=== PATIENT | female | born 1970 | race Caucasian/White ===

== ENCOUNTER 2019-07-25 06:04 | Inpatient (IN) | payer BC ==
[~2019-07-25 06:04] MED LIST: Acetaminophen 325 MG Tab PO SCH; Bisacodyl 5 MG Tab PO PRN; Lactated Ringers 1,000 ML IV SCH; Lidocaine 1%/Sod Bicarbonate in NS 8.4% 1 ML Syringe IDERM PRN; Magnesium Hydroxide 400 MG/5 ML Susp 30 ML Cup PO PRN; Morphine 2 MG/ML Syringe IVPUSH PRN; Naloxone 0.4 MG/ML SDV IVPUSH PRN; Ondansetron 4 MG/2 ML SDV IVPUSH PRN; Pregabalin 25 MG Cap PO SCH; Scopolamine 1.5 MG Transdermal Patch TRDERM SCH; Sennosides 8.6 MG Tab PO PRN; Sodium Chloride 0.9% 10 ML Syringe FLUSH PRN; oxyCODONE ER 10 MG TAB.ER PO SCH
[2019-07-25] MEDS ORDERED: fentaNYL 100 MCG/2 ML SDV ONE (06:22)
[2019-07-25] MEDS ORDERED: Midazolam 1 MG/ML 2 ML SDV ONE ×2 (06:22→07:55)
[2019-07-25] MEDS ORDERED: Propofol 200 MG/20 ML SDV ONE ×2 (06:22→07:58)
[2019-07-25] MEDS ORDERED: ceFAZolin 1 GM Vial ONE (06:25)
--- NOTE | 2019-07-25 06:38 | PCM.PREANE ---
Preanesthetic Assessment - Procedure Proposed Procedure: left total knee arthroplasty - Anesthesia/Transfusion/Family Hx Anesthesia History: Prior Anesthesia Reaction Type of Anesthesia Reaction: Excessive Nausea/Vomiting Family History of Anesthesia Reaction: No Transfusion History: No Prior Transfusion(s) - Review of Systems General: No Symptoms Pulmonary: No Symptoms Cardiovascular: No Symptoms Gastrointestinal: No Symptoms Neurological: No Symptoms Other: Reports: Depression, Anxiety - Physical Assessment NPO Status Date: 07/24/19 NPO Status Time: 22:00 Vital Signs: Last Vital Signs Temp 97.8 F 07/25/19 06:10 Pulse 70 07/25/19 06:10 Resp 16 07/25/19 06:10 BP 124/86 07/25/19 06:10 Pulse Ox 97 07/25/19 06:10 Height: 5 ft 4 in Weight: 91.172 kg ASA Class: 2 Mental Status: Alert & Oriented x3 Airway Class: Mallampati = 1 Dentition: Reports: Normal Dentition Thyro-Mental Finger Breadths: 3 Mouth Opening Finger Breadths: 3 ROM/Head Extension: Full Lungs: Clear to Auscultation, Normal Respiratory Effort Cardiovascular: Regular Rate, Regular Rhythm - Allergies Allergies/Adverse Reactions: Allergies Allergy/AdvReac Type Severity Reaction Status Date / Time amoxicillin Allergy Rash Verified 07/22/19 11:12 bee venom protein (honey bee) Allergy throat Verified 07/22/19 11:12 swelling ciprofloxacin Allergy Rash Verified 07/22/19 11:12 hydrochlorothiazide Allergy Rash Verified 07/22/19 11:12 Penicillins Allergy Rash Verified 07/22/19 11:12 - Blood Blood Available: No - Acknowledgements Anesthesia Type Planned: Spinal Pt an Appropriate Candidate for the Planned Anesthesia: Yes Alternatives and Risks of Anesthesia Discussed w Pt/Guardian: Yes Pt/Guardian Understands and Agrees with Anesthesia Plan: Yes PreAnesthesia Questionnaire HEENT History: Reports: Allergic Rhinitis, Impaired Vision Cardiovascular History: Reports: Hypertension Respiratory History: Reports: Sleep Apnea (cpap) Gastrointestinal History: Reports: None Genitourinary History: Reports: None 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 Musculoskeletal History: Reports: Osteoarthritis Other Musculoskeletal History: KNEE PAIN Neurological History: Reports: Migraines Psychiatric History: Reports: Anxiety, Depression Endocrine/Metabolic History: Reports: None Hematologic History: Reports: None Immunologic History: Reports: None Oncologic (Cancer) History: Reports: None Dermatologic History: Reports: None - Past Surgical History Head Surgeries/Procedures: Reports: None HEENT Surgical History: Reports: Tonsillectomy Cardiovascular Surgical History: Reports: None Respiratory Surgical History: Reports: None GI Surgical History: Reports: None Female Surgical History: Reports: Tubal Ligation Male Surgical History: Reports: None Endocrine Surgical History: Reports: None Neurological Surgical History: Reports: None Musculoskeletal Surgical History: Reports: Carpal Tunnel Oncologic Surgical History: Reports: None Dermatological Surgical History: Reports: None - SUBSTANCE USE Smoking Status *Q: Never Smoker Tobacco Use Within Last Twelve Months: No Second Hand Smoke Exposure: No Days Per Week of Alcohol Use: 3 Number of Drinks Per Day: 5 Total Drinks Per Week: 15 Recreational Drug Use History: No - HOME MEDS Home Medications: Home Meds Cholecalciferol (Vitamin D3) [Vitamin D3] 5,000 unit PO DAILY 07/22/19 [History] Citalopram [Citalopram HBr] 20 mg PO DAILY 07/22/19 [History] Desvenlafaxine Succinate [Desvenlafaxine Succinate ER] 50 mg PO DAILY 07/22/19 [ History] Lisinopril [Zestril] 5 mg PO DAILY 07/22/19 [History] Loratadine [Claritin] 10 mg PO DAILY 07/22/19 [History] Multivitamin [Daily Multiple Vitamin] 1 tab PO DAILY 07/22/19 [History] SUMAtriptan Succinate [Imitrex] 100 mg PO ASDIRECTED PRN 07/22/19 [History] - CURRENT (IN HOUSE) MEDS Current Meds: Current Medications Acetaminophen (Tylenol) 975 mg PO ONETIME [facility] Stop: 07/25/19 16:00 Last Admin: 07/25/19 06:18 Dose: 975 mg Aspirin (Ecotrin) 325 mg PO BID [facility] Bisacodyl (Dulcolax) 5 mg PO DAILY PRN PRN Reason: Constipation Morphine Sulfate 8 mg/Epinephrine HCl 0.3 mg/Cefuroxime Sodium 750 mg/Ketorolac Tromethamine 30 mg/Sodium Chloride 27.9 ml 0 mg .XX ONETIME ONE Stop: 07/25/19 05:56 Cyclobenzaprine HCl (Flexeril) 10 mg PO TID PRN PRN Reason: Spasms Docusate Sodium (Colace) 100 mg PO BID [facility] Famotidine (Pepcid) 20 mg PO Q12H [facility] Lactated Ringer's (Ringers, Lactated) 1,000 mls @ 125 mls/hr IV ASDIRECTED [facility] Stop: 07/25/19 23:00 Cefazolin Sodium/Dextrose 2 gm (/ Premix) 50 mls @ 100 mls/hr IV Q8H [facility] Stop: 07/25/19 22:29 Ketorolac Tromethamine (Toradol) 15 mg IVPUSH Q6H PRN PRN Reason: Pain Lidocaine/Sodium Bicarbonate (Buffered Lidocaine 1% In Ns 8.4%) 0.25 ml IDERM ONETIME PRN PRN Reason: Prior to IV Start Stop: 07/25/19 18:00 Magnesium Hydroxide (Milk Of Magnesia) 30 ml PO BID PRN PRN Reason: Constipation Morphine Sulfate (Morphine) 2 mg IVPUSH Q2H PRN PRN Reason: Breakthrough Pain Naloxone HCl (Narcan) 0.1 mg IVPUSH Q5M PRN PRN Reason: Oversedation Ondansetron HCl (Zofran) 4 mg IVPUSH Q6H PRN PRN Reason: Nausea/Vomiting Oxycodone HCl (Oxycontin) 10 mg PO ONETIME [facility] Stop: 07/25/19 16:00 Last Admin: 07/25/19 06:18 Dose: 10 mg Oxycodone/Acetaminophen (Percocet 325-5 Mg) 1 - 2 tab PO Q4H PRN PRN Reason: Pain Pregabalin (Lyrica) 25 mg PO ONETIME [facility] Stop: 07/25/19 16:00 Last Admin: 07/25/19 06:18 Dose: 25 mg Scopolamine (Transderm-Scop) 1.5 mg TRDERM ONETIME [facility] Stop: 07/25/19 12:00 Last Admin: 07/25/19 06:17 Dose: 1.5 mg Senna (Senna) 8.6 mg PO BID PRN PRN Reason: Constipation Sodium Chloride (Saline Flush) 10 ml FLUSH ASDIRECTED PRN PRN Reason: Keep Vein Open Stop: 07/25/19 18:00 Discontinued Medications Bupivacaine HCl (Sensorcaine-Mpf 0.25%) Confirm Administered Dose 30 ml .ROUTE .STK-MED ONE Stop: 07/25/19 06:25 Cefazolin Sodium (Ancef) Confirm Administered Dose 2 gm .ROUTE .STK-MED ONE Stop: 07/25/19 06:25 Cefazolin Sodium (Ancef) Confirm Administered Dose 2 gm .ROUTE .STK-MED ONE Stop: 07/25/19 06:26 Fentanyl (Sublimaze) Confirm Administered Dose 100 mcg .ROUTE .STK-MED ONE Stop: 07/25/19 06:23 Iodine (Iodine 2% Mild Tincture) Confirm Administered Dose 30 ml .ROUTE .STK- MED ONE Stop: 07/25/19 06:25 Midazolam HCl (Versed 1 Mg/Ml) Confirm Administered Dose 2 mg .ROUTE .STK-MED ONE Stop: 07/25/19 06:23 Propofol (Diprivan 20 Ml) Confirm Administered Dose 600 mg .ROUTE .STK-MED ONE Stop: 07/25/19 06:23 Tranexamic Acid (Cyklokapron) Confirm Administered Dose 1,000 mg .ROUTE .STK- MED ONE Stop: 07/25/19 06:25 Vancomycin HCl (Vancomycin) Confirm Administered Dose 1 gm .ROUTE .STK-MED ONE Stop: 07/25/19 06:25
[2019-07-25] MEDS ORDERED: Ropivacaine 0.5% 5 MG/ML 30 ML SDV ONE (06:50)
[2019-07-25] MEDS ORDERED: EPINEPHrine 1 MG/ML SDV ONE (06:50)
[2019-07-25] MEDS ORDERED: Bupivacaine 0.75% 30 ML SDV ONE (06:52)
[2019-07-25] MEDS ORDERED: fentaNYL 100 MCG/2 ML SDV IVPUSH PRN (07:15)
[2019-07-25] MEDS ORDERED: HYDROmorphone 0.5 MG/0.5 ML Syringe IVPUSH PRN (07:15)
[2019-07-25] MEDS ORDERED: Pregabalin 25 MG Cap PO SCH (07:15)
[2019-07-25] MEDS ORDERED: Ondansetron 4 MG/2 ML SDV IVPUSH PRN (07:15)
[2019-07-25] MEDS: Bupivacaine 0.25% 10 ML SDV ONE ×2 (07:37→08:04)
[2019-07-25] MEDS: ceFAZolin 1 GM Vial ONE ×2 (07:38→07:59)
[2019-07-25] MEDS: Iodine/Sodium Iodide 2% Tincture 30 ML Bottle ONE ×2 (07:38→07:56)
[2019-07-25] MEDS: Morphine 8 MG, EPINEPHrine 0.3 MG, Cefuroxime 750 MG, Ketorolac 30 MG, Sodium Chloride ... ONE ×10 (07:39→08:04)
[2019-07-25] MEDS: Vancomycin 1 GM SDV ONE ×2 (07:40→08:07)
[2019-07-25] MEDS ORDERED: Lactated Ringers 1,000 ML ONE ×2 (08:01→08:09)
[2019-07-25] MEDS ORDERED: Ondansetron 4 MG/2 ML SDV ONE (08:05)
[2019-07-25] MEDS ORDERED: Ketorolac 30 MG/ML SDV ONE (08:11)
--- NOTE | 2019-07-25 08:44 | PCM.POSTAN ---
POST ANESTHESIA ASSESSMENT - MENTAL STATUS Mental Status: Alert, Oriented - VITAL SIGNS Vital Signs: Last Vital Signs Temp 97.8 F 07/25/19 06:10 Pulse 70 07/25/19 06:10 Resp 16 07/25/19 06:10 BP 124/86 07/25/19 06:10 Pulse Ox 97 07/25/19 06:10 79 26 97.8 90/47 100% - RESPIRATORY Respiratory Status: Respiratory Rate WNL, Airway Patent, O2 Saturation Stable, Supplemental Oxygen - CARDIOVASCULAR CV Status: Pulse Rate WNL, Blood Pressure Stable - GASTROINTESTINAL GI Status: No Symptoms - PAIN Pain Score: 0 - POST OP HYDRATION Hydration Status: Adequate & Stable, Other (will increase fluids)
--- NOTE | 2019-07-25 08:59 | PCM.SN ---
- Free Text/Narrative Note: Left selective femoral nerve block at the adductor canal for post-procedure pain control under US guidance requested by Dr. Agudelo. Date:07/25/19 Time Out: 847 Start: 850 End: 853 Chart reviewed. Consent signed. Questions answered. Appropriate monitors applied. Time out performed. Left mid-shaft femur identified with ultrasound, scanning medially of femur, the femoral artery in the adductor canal visualized , and the femoral nerve located laterally to the artery. The skin was prepped lateral to the ultrasound probe with chlorahexadine times two. The 21ga 4 insulated block needle was inserted under direct ultrasound guidance into the adductor canal. 25mL of 0.5% ropivacaine with 1:200,000 epinephrine was injected circumferentially around the nerve with intermittent negative aspiration noted. Patient tolerated the procedure well. Sterile technique noted along with sterile gloves, mask, and sterile probe cover. See picture on progress note and vital signs on nurses notes. Block completed in PACU. Mike Fang CRNA
--- NOTE | 2019-07-25 09:37 | PCM.CONS ---
H&P History of Present Illness - General Date of Service: 07/25/19 Admit Problem/Dx: Admission Diagnosis/Problem Admission Diagnosis/Problem Osteoarthritis of knee Source of Information: Patient, Old Records, Provider, RN, RN Notes Reviewed History Limitations: Reports: No Limitations - History of Present Illness Initial Comments - Free Text/Narative: Julia Munoz is a 49 yo female patient of Dr. Agudelo who is post-operative day 0 of left TKA. Hospital medicine was consulted for post-operative medical care of the following listed medical conditions. At this time she is resting comfortably in bed. Pain is controlled. She denies any chest pain, shortness of breath, palpitations, nausea, or vomiting. She carries a history of: Post- operative nausea and vomiting, Depression, Migraine, HTN, NATALIIA, Vitamin D Deficiency, anxiety. She was never a smoker. She is a full code. Her primary care provider is Le Ramirez PA-C. Left Knee Pain Score (Numeric/FACES): 2 - Related Data Allergies/Adverse Reactions: Allergies Allergy/AdvReac Type Severity Reaction Status Date / Time amoxicillin Allergy Rash Verified 07/22/19 11:12 bee venom protein (honey bee) Allergy throat Verified 07/22/19 11:12 swelling ciprofloxacin Allergy Rash Verified 07/22/19 11:12 hydrochlorothiazide Allergy Rash Verified 07/22/19 11:12 Penicillins Allergy Rash Verified 07/22/19 11:12 Home Medications: Home Meds Cholecalciferol (Vitamin D3) [Vitamin D3] 5,000 unit PO DAILY 07/22/19 [History] Citalopram [Citalopram HBr] 20 mg PO DAILY 07/22/19 [History] Desvenlafaxine Succinate [Desvenlafaxine Succinate ER] 50 mg PO DAILY 07/22/19 [ History] Lisinopril [Zestril] 5 mg PO DAILY 07/22/19 [History] Loratadine [Claritin] 10 mg PO DAILY 07/22/19 [History] Multivitamin [Daily Multiple Vitamin] 1 tab PO DAILY 07/22/19 [History] SUMAtriptan Succinate [Imitrex] 100 mg PO ASDIRECTED PRN 07/22/19 [History] Past Medical History HEENT History: Reports: Allergic Rhinitis, Impaired Vision Cardiovascular History: Reports: Hypertension Respiratory History: Reports: Sleep Apnea (cpap) Gastrointestinal History: Reports: None Genitourinary History: Reports: None 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 Musculoskeletal History: Reports: Osteoarthritis Other Musculoskeletal History: KNEE PAIN Neurological History: Reports: Migraines Psychiatric History: Reports: Anxiety, Depression Endocrine/Metabolic History: Reports: None Hematologic History: Reports: None Immunologic History: Reports: None Oncologic (Cancer) History: Reports: None Dermatologic History: Reports: None - Past Surgical History Head Surgeries/Procedures: Reports: None HEENT Surgical History: Reports: Tonsillectomy Cardiovascular Surgical History: Reports: None Respiratory Surgical History: Reports: None GI Surgical History: Reports: None Female Surgical History: Reports: Tubal Ligation Male Surgical History: Reports: None Endocrine Surgical History: Reports: None Neurological Surgical History: Reports: None Musculoskeletal Surgical History: Reports: Carpal Tunnel Oncologic Surgical History: Reports: None Dermatological Surgical History: Reports: None Social & Family History - Tobacco Use Smoking Status *Q: Never Smoker Second Hand Smoke Exposure: No - Caffeine Use Caffeine Use: Reports: Coffee - Alcohol Use Days Per Week of Alcohol Use: 3 Number of Drinks Per Day: 5 Total Drinks Per Week: 15 - Recreational Drug Use Recreational Drug Use: No H&P Review of Systems - Review of Systems: Review Of Systems: See Below General: Reports: No Symptoms. Denies: Fever, Chills HEENT: Reports: No Symptoms. Denies: Headaches, Sore Throat Pulmonary: Reports: No Symptoms. Denies: Shortness of Breath, Wheezing, Cough, Sputum Cardiovascular: Reports: No Symptoms. Denies: Chest Pain, Palpitations, Dyspnea on Exertion Gastrointestinal: Reports: No Symptoms. Denies: Abdominal Pain, Constipation, Diarrhea, Nausea, Vomiting Genitourinary: Reports: No Symptoms. Denies: Pain Musculoskeletal: Reports: Leg Pain Skin: Reports: No Symptoms. Denies: Cyanosis Psychiatric: Reports: No Symptoms. Denies: Confusion Neurological: Reports: Difficulty Walking, Gait Disturbance Hematologic/Lymphatic: Reports: No Symptoms Immunologic: Reports: No Symptoms Exam - Exam Exam: See Below - Vital Signs Vital Signs: Last Vital Signs Temp 98.0 F 07/25/19 09:20 Pulse 71 07/25/19 09:20 Resp 22 H 07/25/19 09:24 BP 112/96 H 07/25/19 09:20 Pulse Ox 100 12/16/19 09:24 Weight: 201 lb - Exam Quality Assessment: Supplemental Oxygen (1L while sleeping ), DVT Prophylaxis General: Alert, Oriented, Cooperative. No: Mild Distress HEENT: Conjunctiva Clear, EACs Clear, EOMI, Hearing Intact, Mucosa Moist & [place] , Posterior Pharynx Clear, PERRLA Neck: Supple, Trachea Midline Lungs: Clear to Auscultation, Normal Respiratory Effort Cardiovascular: Regular Rate, Regular Rhythm GI/Abdominal Exam: Normal Bowel Sounds, Soft, Non-Tender, No Distention, No Abnormal Bruit (Female) Exam: Deferred Rectal (Female) Exam: Deferred Back Exam: Normal Inspection, Full Range of Motion Extremities: No Pedal Edema, Normal Capillary Refill, Leg Pain, Limited Range of Motion, Other (Bandage in place on left leg. Bandage is dry and intact. Cooling pack in place. ) Peripheral Pulses: 2+: Radial (L), Radial (R), Dorsalis Pedis (L), Dorsalis Pedis (R) Skin: Warm, Dry, Intact Neurological: Cranial Nerves Intact (Grossly ) Neuro Extensive - Mental Status: Alert, Oriented x3 Sepsis Event Note - Evaluation Sepsis Screening Result: No Definite Risk - Focused Exam Vital Signs: Vital Signs Temp Pulse Resp BP Pulse Ox Pulse Ox 07/25/19 09:24 22 H 100 07/25/19 09:20 98.0 F 71 18 112/96 H 100 07/25/19 09:00 97.6 F 82 27 H 109/73 99 99 07/25/19 08:45 98.0 F 72 22 H 95/53 L 100 07/25/19 08:38 97.8 F 79 26 H 90/47 L 100 07/25/19 06:10 97.8 F 70 16 124/86 97 Date Exam was Performed: 07/25/19 Time Exam was Performed: 14:45 Consult PN Assessment/Plan POD#: 0 Procedures: Procedures AGENT NOS ASSAY W/OPTIC (04/27/14) ASSAY OF PREALBUMIN (06/28/19) ASSAY THYROID STIM HORMONE (04/15/19) BREAST TOMOSYNTHESIS BI (04/25/19) CARDIOVASCULAR STRESS TEST (04/25/19) COMPLETE CBC AUTOMATED (06/28/19) COMPREHEN METABOLIC PANEL (06/28/19) CULTURE SCREEN ONLY (08/28/16) HT MUSCLE IMAGE SPECT MULT (04/25/19) LIPID PANEL (04/15/19) METABOLIC PANEL TOTAL CA (12/18/15) MR-STAPH DNA AMP PROBE (06/28/19) POLYSOM 6/>YRS CPAP 4/> PARM (12/21/15) PROTHROMBIN TIME (06/28/19) SCR MAMMO BI INCL CAD (04/25/19) STOOL CULTR AEROBIC BACT EA (04/27/14) THROMBOPLASTIN TIME PARTIAL (06/28/19) TTE W/DOPPLER COMPLETE (04/25/19) VITAMIN D 25 HYDROXY (04/15/19) X-RAY EXAM CHEST 2 VIEWS (04/15/19) (1) S/P total knee arthroplasty SNOMED Code(s): 9632996900442, 616873724, 4044626826267 Code(s): Z96.659 - PRESENCE OF UNSPECIFIED ARTIFICIAL KNEE JOINT Priority: High Current Visit: Yes Qualifiers: Laterality: left Qualified Code(s): Z96.652 - Presence of left artificial knee joint (2) Osteoarthritis SNOMED Code(s): 889270413 Code(s): M19.90 - UNSPECIFIED OSTEOARTHRITIS, UNSPECIFIED SITE Priority: High Current Visit: Yes Qualifiers: Osteoarthritis location: knee Osteoarthritis type: primary Laterality: left Qualified Code(s): M17.12 - Unilateral primary osteoarthritis, left knee (3) History of postoperative nausea and vomiting SNOMED Code(s): 571830386, 761210196 Code(s): Z87.898 - PERSONAL HISTORY OF OTHER SPECIFIED CONDITIONS Priority : Medium Current Visit: No (4) Depression SNOMED Code(s): 78677876 Code(s): F32.9 - MAJOR DEPRESSIVE DISORDER, SINGLE EPISODE, UNSPECIFIED Priority: Low Current Visit: No Qualifiers: Depression Type: other depression Qualified Code(s): F32.89 - Other specified depressive episodes (5) HTN (hypertension) SNOMED Code(s): 49954876 Code(s): I10 - ESSENTIAL (PRIMARY) HYPERTENSION Priority: Medium Current Visit: No Qualifiers: Hypertension type: unspecified Qualified Code(s): I10 - Essential (primary ) hypertension (6) Migraine SNOMED Code(s): 52282905 Code(s): G43.909 - MIGRAINE, UNSP, NOT INTRACTABLE, WITHOUT STATUS MIGRAINOSUS Priority: Low Current Visit: No Qualifiers: Migraine type: unspecified Status migrainosus presence: without status migrainosus Intractability: not intractable Qualified Code(s): G43.909 - Migraine, unspecified, not intractable, without status migrainosus (7) NATALIIA (obstructive sleep apnea) SNOMED Code(s): 51678266 Code(s): G47.33 - OBSTRUCTIVE SLEEP APNEA (ADULT) (PEDIATRIC) Priority: Medium Current Visit: No (8) Vitamin D deficiency SNOMED Code(s): 14526025 Code(s): E55.9 - VITAMIN D DEFICIENCY, UNSPECIFIED Priority: Low Current Visit: No (9) Anxiety SNOMED Code(s): 38458816 Code(s): F41.9 - ANXIETY DISORDER, UNSPECIFIED Priority: Low Current Visit: No Problem List Initiated/Reviewed/Updated: No Plan: I/P: Acute: S/P left total knee arthroplasty - post-operative day 0 -DVT prophylaxis and pain management per primary care team -PT/OT -IS/RT -Monitor oxygen saturation -Titrate oxygen as needed -Home medications reviewed -Vital signs stable -Monitor labs -Pre-operative Hgb was 12.8 -Pre-operative GFR was >60 -Pre-operative BUN was 21 Osteoarthritis of left knee -Pain management per primary care team Chronic: Hx/o Post-operative nausea and vomiting Depression Migraine HTN NATALIIA Vitamin D Deficiency Anxiety Plan: CM for discharge planning GI prophylaxis Home medications as indicated Other orders as listed above Routine AM labs She is a full code. Her PCP is Le Ramirez PA-C Thank you for allowing us to participate in the care of this patient!! Requesting Provider: Dr. Agudelo Date Consult Requested: 07/25/19 Patient History Reviewed: Yes Admission H&P Reviewed: Yes
--- NOTE | 2019-07-25 10:58 | CR ---
Left knee: AP and lateral views of the left knee were obtained. Comparison: No previous knee exam. Knee prosthesis is seen. Components are aligned. Soft tissue air is noted from the surgical procedure. Underlying bony structures appear intact. Impression: 1. Satisfactory postop radiographic appearance of recently placed left knee prosthesis. Diagnostic code #2 This report was dictated in [place] Standard Time
[2019-07-25] MEDS: Acetaminophen/oxyCODONE 325-5 MG Tab PO PRN ×3 (12:08→21:12)
[2019-07-25] MEDS: Cyclobenzaprine 10 MG Tab PO PRN ×2 (15:22→23:52)
[2019-07-25] MEDS: ceFAZolin 2 GM in Premix Bag 1 BAG IV SCH ×2 (15:22→22:38)
[2019-07-25] MEDS: Famotidine 20 MG Tab PO SCH ×2 (16:51→17:12)
[2019-07-25] MEDS: Docusate Sodium 100 MG Cap PO SCH (21:12)
[2019-07-25] MEDS: Ketorolac 15 MG/ML SDV IVPUSH PRN (21:53)
[2019-07-26] MEDS: Acetaminophen/oxyCODONE 325-5 MG Tab PO PRN ×3 (01:20→10:23)
[2019-07-26] MEDS: Ketorolac 15 MG/ML SDV IVPUSH PRN (03:52)
[2019-07-26 05:43] VITALS: PULSE 80
[2019-07-26] MEDS: Famotidine 20 MG Tab PO SCH (06:33)
[2019-07-26] MEDS: ceFAZolin 2 GM in Premix Bag 1 BAG IV SCH (06:34)
--- NOTE | 2019-07-26 06:54 | PCM.CONSN ---
- General Info Date of Service: 07/26/19 Admission Dx/Problem (Free Text): Admission Diagnosis/Problem Admission Diagnosis/Problem Osteoarthritis of knee Functional Status: Reports: Pain Controlled, Tolerating Diet, Ambulating, Urinating, Incentive Spirometry. Denies: New Symptoms - Review of Systems General: Reports: No Symptoms. Denies: Fever, Chills HEENT: Reports: No Symptoms. Denies: Headaches, Sore Throat Pulmonary: Reports: No Symptoms. Denies: Shortness of Breath, Pleuritic Chest Pain, Cough, Sputum, Wheezing Cardiovascular: Reports: No Symptoms. Denies: Chest Pain, Palpitations, Dyspnea on Exertion Gastrointestinal: Reports: No Symptoms. Denies: Abdominal Pain, Constipation, Diarrhea, Nausea (occasional with movement but none now), Vomiting Genitourinary: Reports: No Symptoms. Denies: Pain Musculoskeletal: Reports: No Symptoms, Leg Pain Skin: Reports: No Symptoms. Denies: Cyanosis Neurological: Reports: Difficulty Walking, Gait Disturbance. Denies: Confusion , Dizziness (occasional with movement but none now), Pre-Existing Deficit Psychiatric: Reports: No Symptoms - Patient Data Vitals - Most Recent: Last Vital Signs Temp 99.5 F 07/26/19 05:15 Pulse 80 07/26/19 05:20 Resp 15 07/25/19 20:00 BP 111/67 07/26/19 05:19 Pulse Ox 96 07/26/19 05:20 Weight - Most Recent: 201 lb I&O - Last 24 Hours: Intake & Output 07/25/19 07/25/19 07/26/19 14:59 22:59 06:59 Intake Total 780 Balance 780 Lab Results Last 24 Hours: Laboratory Results - last 24 hr 07/26/19 Range/Units 05:40 WBC 7.84 (3.98-10.04) K/mm3 RBC 3.51 L (3.98-5.22) M/mm3 Hgb 10.6 L D (11.2-15.7) gm/dl Hct 33.3 L (34.1-44.9) % MCV 94.9 H (79.4-94.8) fl MCH 30.2 (25.6-32.2) pg MCHC 31.8 L (32.2-35.5) g/dl RDW Std Deviation 46.6 H (36.4-46.3) fL Plt Count 322 (182-369) K/mm3 MPV 8.8 L (9.4-12.3) fl Med Orders - Current: Current Medications Aspirin (Ecotrin) 325 mg PO BID [facility] Bisacodyl (Dulcolax) 5 mg PO DAILY PRN PRN Reason: Constipation Cholecalciferol (Vitamin D3) 5,000 unit PO DAILY [facility] Citalopram Hydrobromide (Celexa) 20 mg PO DAILY [facility] Cyclobenzaprine HCl (Flexeril) 10 mg PO TID PRN PRN Reason: Spasms Last Admin: 07/25/19 23:52 Dose: 10 mg Docusate Sodium (Colace) 100 mg PO BID [facility] Last Admin: 07/25/19 21:12 Dose: 100 mg Famotidine (Pepcid) 20 mg PO Q12H [facility] Last Admin: 07/26/19 06:33 Dose: 20 mg Cefazolin Sodium/Dextrose 2 gm (/ Premix) 50 mls @ 100 mls/hr IV Q8H [facility] Stop: 07/26/19 06:59 Last Admin: 07/26/19 06:34 Dose: 100 mls/hr Loratadine (Claritin) 10 mg PO DAILY [facility] Magnesium Hydroxide (Milk Of Magnesia) 30 ml PO BID PRN PRN Reason: Constipation Morphine Sulfate (Morphine) 2 mg IVPUSH Q2H PRN PRN Reason: Breakthrough Pain Multivitamins (Thera) 1 each PO DAILY [facility] Naloxone HCl (Narcan) 0.1 mg IVPUSH Q5M PRN PRN Reason: Oversedation Ondansetron HCl (Zofran) 4 mg IVPUSH Q6H PRN PRN Reason: Nausea/Vomiting Oxycodone/Acetaminophen (Percocet 325-5 Mg) 1 - 2 tab PO Q4H PRN PRN Reason: Pain Last Admin: 07/26/19 05:24 Dose: 2 tab Desvenlafaxine Succinate [ Desvenlafaxine Succinate Er] 50 0 each PO DAILY [facility] Senna (Senna) 8.6 mg PO BID PRN PRN Reason: Constipation Discontinued Medications Acetaminophen (Tylenol) 975 mg PO ONETIME [facility] Stop: 07/25/19 16:00 Last Admin: 07/25/19 06:18 Dose: 975 mg Aspirin (Ecotrin) 325 mg PO BID [facility] Bupivacaine HCl (Sensorcaine-Mpf 0.25%) Confirm Administered Dose 30 ml .ROUTE .STK-MED ONE Stop: 07/25/19 06:25 Last Admin: 07/25/19 08:04 Dose: 30 ml Bupivacaine HCl (Sensorcaine-Mpf 0.75%) Confirm Administered Dose 30 ml .ROUTE .STK-MED ONE Stop: 07/25/19 06:53 Cefazolin Sodium (Ancef) Confirm Administered Dose 2 gm .ROUTE .STK-MED ONE Stop: 07/25/19 06:25 Last Admin: 07/25/19 07:59 Dose: 2 gm Cefazolin Sodium (Ancef) Confirm Administered Dose 2 gm .ROUTE .STK-MED ONE Stop: 07/25/19 06:26 Morphine Sulfate 8 mg/Epinephrine HCl 0.3 mg/Cefuroxime Sodium 750 mg/Ketorolac Tromethamine 30 mg/Sodium Chloride 27.9 ml 0 mg .XX ONETIME ONE Stop: 07/25/19 07:31 Last Admin: 07/25/19 08:04 Dose: 788.3 mg Epinephrine HCl (Adrenalin) Confirm Administered Dose 1 mg .ROUTE .STK-MED ONE Stop: 07/25/19 06:51 Fentanyl (Sublimaze) Confirm Administered Dose 100 mcg .ROUTE .STK-MED ONE Stop: 07/25/19 06:23 Fentanyl (Sublimaze) 50 mcg IVPUSH Q5M PRN PRN Reason: Pain Stop: 07/25/19 18:00 Hydromorphone HCl (Dilaudid) 0.5 mg IVPUSH Q10M PRN PRN Reason: Pain (severe 7-10) Stop: 07/25/19 18:00 Lactated Ringer's (Ringers, Lactated) 1,000 mls @ 125 mls/hr IV ASDIRECTED [facility] Stop: 07/25/19 23:00 Last Admin: 07/25/19 06:30 Dose: 125 mls/hr Lactated Ringer's (Ringers, Lactated) Confirm Administered Dose 1,000 mls @ as directed .ROUTE .STK-MED ONE Stop: 07/25/19 08:02 Lactated Ringer's (Ringers, Lactated) Confirm Administered Dose 1,000 mls @ as directed .ROUTE .STK-MED ONE Stop: 07/25/19 08:10 Iodine (Iodine 2% Mild Tincture) Confirm Administered Dose 30 ml .ROUTE .STK- MED ONE Stop: 07/25/19 06:25 Last Admin: 07/25/19 07:56 Dose: 18 ml Ketorolac Tromethamine (Toradol) 15 mg IVPUSH Q6H PRN PRN Reason: Pain Last Admin: 07/26/19 03:52 Dose: 15 mg Ketorolac Tromethamine (Toradol) Confirm Administered Dose 30 mg .ROUTE .STK- MED ONE Stop: 07/25/19 08:12 Lidocaine HCl (Xylocaine-Mpf 1%) Confirm Administered Dose 5 ml .ROUTE .STK-MED ONE Stop: 07/25/19 06:52 Lidocaine/Sodium Bicarbonate (Buffered Lidocaine 1% In Ns 8.4%) 0.25 ml IDERM ONETIME PRN PRN Reason: Prior to IV Start Stop: 07/25/19 18:00 Midazolam HCl (Versed 1 Mg/Ml) Confirm Administered Dose 2 mg .ROUTE .STK-MED ONE Stop: 07/25/19 06:23 Midazolam HCl (Versed 1 Mg/Ml) Confirm Administered Dose 2 mg .ROUTE .STK-MED ONE Stop: 07/25/19 07:56 Ondansetron HCl (Zofran) 4 mg IVPUSH ONETIME PRN PRN Reason: Nausea/Vomiting Stop: 07/25/19 18:00 Ondansetron HCl (Zofran) Confirm Administered Dose 4 mg .ROUTE .STK-MED ONE Stop: 07/25/19 08:06 Oxycodone HCl (Oxycontin) 10 mg PO ONETIME [facility] Stop: 07/25/19 16:00 Last Admin: 07/25/19 06:18 Dose: 10 mg Pregabalin (Lyrica) 25 mg PO ONETIME [facility] Stop: 07/25/19 16:00 Last Admin: 07/25/19 06:18 Dose: 50 mg Pregabalin (Lyrica) 50 mg PO ONETIME [facility] Stop: 07/25/19 16:00 Propofol (Diprivan 20 Ml) Confirm Administered Dose 600 mg .ROUTE .STK-MED ONE Stop: 07/25/19 06:23 Propofol (Diprivan 20 Ml) Confirm Administered Dose 200 mg .ROUTE .STK-MED ONE Stop: 07/25/19 07:59 Ropivacaine (Naropin 0.5%) Confirm Administered Dose 30 ml .ROUTE .STK-MED ONE Stop: 07/25/19 06:51 Scopolamine (Transderm-Scop) 1.5 mg TRDERM ONETIME [facility] Stop: 07/25/19 12:00 Last Admin: 07/25/19 06:17 Dose: 1.5 mg Sodium Chloride (Saline Flush) 10 ml FLUSH ASDIRECTED PRN PRN Reason: Keep Vein Open Stop: 07/25/19 18:00 Tranexamic Acid (Cyklokapron) Confirm Administered Dose 1,000 mg .ROUTE .STK- MED ONE Stop: 07/25/19 06:25 Last Admin: 07/25/19 08:12 Dose: 1,000 mg Vancomycin HCl (Vancomycin) Confirm Administered Dose 1 gm .ROUTE .STK-MED ONE Stop: 07/25/19 06:25 Last Admin: 07/25/19 08:07 Dose: 1 gm - Exam Quality Assessment: DVT Prophylaxis General: Alert, Oriented, Cooperative, No Acute Distress HEENT: Pupils Equal, Pupils Reactive, EOMI, Mucous Membr. Moist/[place] Neck: Supple, Trachea Midline Lungs: Clear to Auscultation, Normal Respiratory Effort Cardiovascular: Regular Rate, Regular Rhythm GI/Abdominal Exam: Normal Bowel Sounds, Soft, Non-Tender, No Distention, No Abnormal Bruit (Female) Exam: Deferred Back Exam: Normal Inspection, Full Range of Motion Extremities: Normal Capillary Refill, Leg Pain, Limited Range of Motion, Other ( Bandage in place on left knee. Cooling pack in place. ) Peripheral Pulses: 2+: Radial (L), Radial (R), Dorsalis Pedis (L), Dorsalis Pedis (R) Skin: Warm, Dry, Intact Wound/Incisions: Dressing Dry and Intact Neurological: No New Focal Deficit Psy/Mental Status: Alert, Normal Affect, Normal Mood Sepsis Event Note - Evaluation Sepsis Screening Result: No Definite Risk - Focused Exam Vital Signs: Vital Signs Temp Temp Pulse Pulse Resp BP Pulse Ox 07/26/19 05:20 80 96 07/26/19 05:19 78 111/67 92 L 07/26/19 05:15 99.5 F 07/26/19 03:04 07/25/19 23:35 72 103/66 99 07/25/19 22:50 07/25/19 20:00 99.0 F 75 15 115/53 L 97 Pulse Ox 07/26/19 05:20 07/26/19 05:19 07/26/19 05:15 07/26/19 03:04 96 07/25/19 23:35 07/25/19 22:50 96 07/25/19 20:00 Date Exam was Performed: 07/26/19 Time Exam was Performed: 09:50 Consult PN Assessment/Plan POD#: 1 Procedures: Procedures AGENT NOS ASSAY W/OPTIC (04/27/14) ASSAY OF PREALBUMIN (06/28/19) ASSAY THYROID STIM HORMONE (04/15/19) BREAST TOMOSYNTHESIS BI (04/25/19) CARDIOVASCULAR STRESS TEST (04/25/19) COMPLETE CBC AUTOMATED (06/28/19) COMPREHEN METABOLIC PANEL (06/28/19) CULTURE SCREEN ONLY (08/28/16) HT MUSCLE IMAGE SPECT MULT (04/25/19) LIPID PANEL (04/15/19) METABOLIC PANEL TOTAL CA (12/18/15) MR-STAPH DNA AMP PROBE (06/28/19) POLYSOM 6/>YRS CPAP 4/> PARM (12/21/15) PROTHROMBIN TIME (06/28/19) SCR MAMMO BI INCL CAD (04/25/19) STOOL CULTR AEROBIC BACT EA (04/27/14) THROMBOPLASTIN TIME PARTIAL (06/28/19) TTE W/DOPPLER COMPLETE (04/25/19) VITAMIN D 25 HYDROXY (04/15/19) X-RAY EXAM CHEST 2 VIEWS (04/15/19) (1) S/P total knee arthroplasty SNOMED Code(s): 1030175822586, 218114361, 3564993608525 Code(s): Z96.659 - PRESENCE OF UNSPECIFIED ARTIFICIAL KNEE JOINT Priority: High Current Visit: Yes Qualifiers: Laterality: left Qualified Code(s): Z96.652 - Presence of left artificial knee joint (2) Osteoarthritis SNOMED Code(s): 500855465 Code(s): M19.90 - UNSPECIFIED OSTEOARTHRITIS, UNSPECIFIED SITE Priority: High Current Visit: Yes Qualifiers: Osteoarthritis location: knee Osteoarthritis type: primary Laterality: left Qualified Code(s): M17.12 - Unilateral primary osteoarthritis, left knee (3) History of postoperative nausea and vomiting SNOMED Code(s): 694253289, 883687392 Code(s): Z87.898 - PERSONAL HISTORY OF OTHER SPECIFIED CONDITIONS Priority : Medium Current Visit: No (4) Depression SNOMED Code(s): 21241649 Code(s): F32.9 - MAJOR DEPRESSIVE DISORDER, SINGLE EPISODE, UNSPECIFIED Priority: Low Current Visit: No Qualifiers: Depression Type: other depression Qualified Code(s): F32.89 - Other specified depressive episodes (5) HTN (hypertension) SNOMED Code(s): 00788213 Code(s): I10 - ESSENTIAL (PRIMARY) HYPERTENSION Priority: Medium Current Visit: No Qualifiers: Hypertension type: unspecified Qualified Code(s): I10 - Essential (primary ) hypertension (6) Migraine SNOMED Code(s): 48773051 Code(s): G43.909 - MIGRAINE, UNSP, NOT INTRACTABLE, WITHOUT STATUS MIGRAINOSUS Priority: Low Current Visit: No Qualifiers: Migraine type: unspecified Status migrainosus presence: without status migrainosus Intractability: not intractable Qualified Code(s): G43.909 - Migraine, unspecified, not intractable, without status migrainosus (7) NATALIIA (obstructive sleep apnea) SNOMED Code(s): 64211978 Code(s): G47.33 - OBSTRUCTIVE SLEEP APNEA (ADULT) (PEDIATRIC) Priority: Medium Current Visit: No (8) Vitamin D deficiency SNOMED Code(s): 78489273 Code(s): E55.9 - VITAMIN D DEFICIENCY, UNSPECIFIED Priority: Low Current Visit: No (9) Anxiety SNOMED Code(s): 37942490 Code(s): F41.9 - ANXIETY DISORDER, UNSPECIFIED Priority: Low Current Visit: No Problem List Initiated/Reviewed/Updated: Yes My Orders Last 24 Hours: My Active Orders 07/25/19 14:45 CPAP Noctural Home [RT BiPAP/CPAP] [RC] ASDIRECTED 07/26/19 09:00 Cholecalciferol (Vitamin D3) [Vitamin D3] 5,000 unit PO DAILY Citalopram [Celexa] 20 mg PO DAILY Loratadine [Claritin] 10 mg PO DAILY Multivitamins,Therapeutic [Thera] 1 each PO DAILY Patient's Own Medication [Ptom] 0 each PO DAILY Plan: I/P: Acute: S/P left total knee arthroplasty - post-operative day 1 -DVT prophylaxis and pain management per primary care team -PT/OT -IS/RT -Monitor oxygen saturation -Titrate oxygen as needed -Home medications reviewed -Vital signs stable -Monitor labs -Pre-operative Hgb was 12.8; Now 10.6 -Pre-operative GFR was >60; Now >60 -Pre-operative BUN was 21; Now 12 Osteoarthritis of left knee -Pain management per primary care team Chronic: Hx/o Post-operative nausea and vomiting Depression Migraine HTN NATALIIA Vitamin D Deficiency Anxiety Plan: CM for discharge planning GI prophylaxis Home medications as indicated Other orders as listed above Routine AM labs She is a full code. Her PCP is Le Ramirez PA-C From a hospitalist standpoint Julia is doing well. She has been up ambulating and working with therapies. She is off of oxygen and has urinated. Her labs and vital signs remain stable. She has been utilizing her IS and pain is controlled , but does wax and wane. She is cleared for discharge pending primary team and PT/OT agreement. Thank you for allowing us to participate in the care of this patient!!
--- NOTE | 2019-07-26 07:54 | PCM48HPAN ---
Post Anesthesia Note - EVALUATION WITHIN 48HRS OF ANESTHETIC Vital Signs in Normal Range: Yes Patient Participated in Evaluation: Yes Respiratory Function Stable: Yes Airway Patent: Yes Cardiovascular Function Stable: Yes Hydration Status Stable: Yes Pain Control Satisfactory: Yes Nausea and Vomiting Control Satisfactory: Yes Mental Status Recovered: Yes Vital Signs: Last Vital Signs Temp 99.5 F 07/26/19 05:15 Pulse 80 07/26/19 05:20 Resp 15 07/25/19 20:00 BP 111/67 07/26/19 05:19 Pulse Ox 96 07/26/19 07:41 - COMMENTS/OBSERVATIONS Free Text/Narrative:: pain started around 3 am. taking pain pills.denies nausea
[2019-07-26] MEDS: Docusate Sodium 100 MG Cap PO SCH (08:53)
[2019-07-26 08:55] VITALS: BP 91/55
[2019-07-26] MEDS ORDERED: Aspirin 325 MG Tab.EC PO SCH ×2 (09:00)
[2019-07-26] MEDS ORDERED: Loratadine 10 MG Tab PO SCH (09:00)
[2019-07-26] MEDS ORDERED: Cholecalciferol (Vitamin D3) 5,000 UNIT Tab PO SCH (09:00)
[2019-07-26] MEDS ORDERED: Lisinopril 5 MG Tab PO SCH (09:00)
[2019-07-26] MEDS ORDERED: Multivitamins,Therapeutic Tab PO SCH (09:00)
[2019-07-26] MEDS ORDERED: DESVENLAFAXINE SUCCINATE PO SCH (09:00)
[2019-07-26] MEDS ORDERED: Citalopram 20 MG Tab PO SCH (09:00)
[2019-07-26] MEDS ORDERED: Ketorolac 15 MG/ML SDV IVPUSH ONE (10:00)
[2019-07-26] MEDS: Cyclobenzaprine 10 MG Tab PO PRN (11:57)
--- NOTE | 2019-07-28 13:32 | PCM.SURGPN ---
- General Info Date of Service: 07/26/19 POD#: 1 Functional Status: Reports: Tolerating Diet, Ambulating, Urinating, Incentive Spirometry, Other (The pt states she notes more pain this morning.) - Patient Data Vitals - Most Recent: Last Vital Signs Temp 99.5 F 07/26/19 05:15 Pulse 80 07/26/19 05:20 Resp 15 07/25/19 20:00 BP 91/55 L 07/26/19 08:52 Pulse Ox 96 07/26/19 07:41 Weight - Most Recent: 201 lb Med Orders - Current: Current Medications Discontinued Medications Acetaminophen (Tylenol) 975 mg PO ONETIME [facility] Stop: 07/25/19 16:00 Last Admin: 07/25/19 06:18 Dose: 975 mg Aspirin (Ecotrin) 325 mg PO BID [facility] Aspirin (Ecotrin) 325 mg PO BID [facility] Last Admin: 07/26/19 08:53 Dose: 325 mg Bisacodyl (Dulcolax) 5 mg PO DAILY PRN PRN Reason: Constipation Bupivacaine HCl (Sensorcaine-Mpf 0.25%) Confirm Administered Dose 30 ml .ROUTE .STK-MED ONE Stop: 07/25/19 06:25 Last Admin: 07/25/19 08:04 Dose: 30 ml Bupivacaine HCl (Sensorcaine-Mpf 0.75%) Confirm Administered Dose 30 ml .ROUTE .STK-MED ONE Stop: 07/25/19 06:53 Cefazolin Sodium (Ancef) Confirm Administered Dose 2 gm .ROUTE .STK-MED ONE Stop: 07/25/19 06:25 Last Admin: 07/25/19 07:59 Dose: 2 gm Cefazolin Sodium (Ancef) Confirm Administered Dose 2 gm .ROUTE .STK-MED ONE Stop: 07/25/19 06:26 Cholecalciferol (Vitamin D3) 5,000 unit PO DAILY [facility] Last Admin: 07/26/19 08:53 Dose: 5,000 unit Citalopram Hydrobromide (Celexa) 20 mg PO DAILY [facility] Last Admin: 07/26/19 08:53 Dose: 20 mg Morphine Sulfate 8 mg/Epinephrine HCl 0.3 mg/Cefuroxime Sodium 750 mg/Ketorolac Tromethamine 30 mg/Sodium Chloride 27.9 ml 0 mg .XX ONETIME ONE Stop: 07/25/19 07:31 Last Admin: 07/25/19 08:04 Dose: 788.3 mg Cyclobenzaprine HCl (Flexeril) 10 mg PO TID PRN PRN Reason: Spasms Last Admin: 07/26/19 11:57 Dose: 10 mg Docusate Sodium (Colace) 100 mg PO BID [facility] Last Admin: 07/26/19 08:53 Dose: 100 mg Epinephrine HCl (Adrenalin) Confirm Administered Dose 1 mg .ROUTE .STK-MED ONE Stop: 07/25/19 06:51 Famotidine (Pepcid) 20 mg PO Q12H [facility] Last Admin: 07/26/19 06:33 Dose: 20 mg Fentanyl (Sublimaze) Confirm Administered Dose 100 mcg .ROUTE .STK-MED ONE Stop: 07/25/19 06:23 Fentanyl (Sublimaze) 50 mcg IVPUSH Q5M PRN PRN Reason: Pain Stop: 07/25/19 18:00 Hydromorphone HCl (Dilaudid) 0.5 mg IVPUSH Q10M PRN PRN Reason: Pain (severe 7-10) Stop: 07/25/19 18:00 Lactated Ringer's (Ringers, Lactated) 1,000 mls @ 125 mls/hr IV ASDIRECTED [facility] Stop: 07/25/19 23:00 Last Admin: 07/25/19 06:30 Dose: 125 mls/hr Cefazolin Sodium/Dextrose 2 gm (/ Premix) 50 mls @ 100 mls/hr IV Q8H [facility] Stop: 07/26/19 06:59 Last Admin: 07/26/19 06:34 Dose: 100 mls/hr Lactated Ringer's (Ringers, Lactated) Confirm Administered Dose 1,000 mls @ as directed .ROUTE .STK-MED ONE Stop: 07/25/19 08:02 Lactated Ringer's (Ringers, Lactated) Confirm Administered Dose 1,000 mls @ as directed .ROUTE .STK-MED ONE Stop: 07/25/19 08:10 Iodine (Iodine 2% Mild Tincture) Confirm Administered Dose 30 ml .ROUTE .STK- MED ONE Stop: 07/25/19 06:25 Last Admin: 07/25/19 07:56 Dose: 18 ml Ketorolac Tromethamine (Toradol) 15 mg IVPUSH Q6H PRN PRN Reason: Pain Last Admin: 07/26/19 03:52 Dose: 15 mg Ketorolac Tromethamine (Toradol) Confirm Administered Dose 30 mg .ROUTE .STK- MED ONE Stop: 07/25/19 08:12 Ketorolac Tromethamine (Toradol) 15 mg IVPUSH ONETIME ONE Stop: 07/26/19 10:01 Last Admin: 07/26/19 09:52 Dose: 15 mg Lidocaine HCl (Xylocaine-Mpf 1%) Confirm Administered Dose 5 ml .ROUTE .STK-MED ONE Stop: 07/25/19 06:52 Lidocaine/Sodium Bicarbonate (Buffered Lidocaine 1% In Ns 8.4%) 0.25 ml IDERM ONETIME PRN PRN Reason: Prior to IV Start Stop: 07/25/19 18:00 Lisinopril (Prinivil) 5 mg PO DAILY [facility] Last Admin: 07/26/19 08:52 Dose: Not Given Loratadine (Claritin) 10 mg PO DAILY [facility] Last Admin: 07/26/19 09:03 Dose: Not Given Magnesium Hydroxide (Milk Of Magnesia) 30 ml PO BID PRN PRN Reason: Constipation Midazolam HCl (Versed 1 Mg/Ml) Confirm Administered Dose 2 mg .ROUTE .STK-MED ONE Stop: 07/25/19 06:23 Midazolam HCl (Versed 1 Mg/Ml) Confirm Administered Dose 2 mg .ROUTE .STK-MED ONE Stop: 07/25/19 07:56 Morphine Sulfate (Morphine) 2 mg IVPUSH Q2H PRN PRN Reason: Breakthrough Pain Last Admin: 07/26/19 07:39 Dose: 2 mg Multivitamins (Thera) 1 each PO DAILY [facility] Last Admin: 07/26/19 08:49 Dose: 1 each Naloxone HCl (Narcan) 0.1 mg IVPUSH Q5M PRN PRN Reason: Oversedation Ondansetron HCl (Zofran) 4 mg IVPUSH Q6H PRN PRN Reason: Nausea/Vomiting Ondansetron HCl (Zofran) 4 mg IVPUSH ONETIME PRN PRN Reason: Nausea/Vomiting Stop: 07/25/19 18:00 Ondansetron HCl (Zofran) Confirm Administered Dose 4 mg .ROUTE .STK-MED ONE Stop: 07/25/19 08:06 Oxycodone HCl (Oxycontin) 10 mg PO ONETIME [facility] Stop: 07/25/19 16:00 Last Admin: 07/25/19 06:18 Dose: 10 mg Oxycodone/Acetaminophen (Percocet 325-5 Mg) 1 - 2 tab PO Q4H PRN PRN Reason: Pain Last Admin: 07/26/19 10:23 Dose: 2 tab Desvenlafaxine Succinate [ Desvenlafaxine Succinate Er] 50 0 each PO DAILY [facility] Pregabalin (Lyrica) 25 mg PO ONETIME [facility] Stop: 07/25/19 16:00 Last Admin: 07/25/19 06:18 Dose: 50 mg Pregabalin (Lyrica) 50 mg PO ONETIME [facility] Stop: 07/25/19 16:00 Propofol (Diprivan 20 Ml) Confirm Administered Dose 600 mg .ROUTE .STK-MED ONE Stop: 07/25/19 06:23 Propofol (Diprivan 20 Ml) Confirm Administered Dose 200 mg .ROUTE .STK-MED ONE Stop: 07/25/19 07:59 Ropivacaine (Naropin 0.5%) Confirm Administered Dose 30 ml .ROUTE .STK-MED ONE Stop: 07/25/19 06:51 Scopolamine (Transderm-Scop) 1.5 mg TRDERM ONETIME [facility] Stop: 07/25/19 12:00 Last Admin: 07/25/19 06:17 Dose: 1.5 mg Senna (Senna) 8.6 mg PO BID PRN PRN Reason: Constipation Sodium Chloride (Saline Flush) 10 ml FLUSH ASDIRECTED PRN PRN Reason: Keep Vein Open Stop: 07/25/19 18:00 Tranexamic Acid (Cyklokapron) Confirm Administered Dose 1,000 mg .ROUTE .STK- MED ONE Stop: 07/25/19 06:25 Last Admin: 07/25/19 08:12 Dose: 1,000 mg Vancomycin HCl (Vancomycin) Confirm Administered Dose 1 gm .ROUTE .STK-MED ONE Stop: 07/25/19 06:25 Last Admin: 07/25/19 08:07 Dose: 1 gm - Exam Wound/Incisions: Dressing Dry and Intact General: Alert, Cooperative, No Acute Distress Lungs: Normal Respiratory Effort Extremities: Other (NVS intact for BLE. Lisa's negative for BLE.) Sepsis Event Note - Evaluation Sepsis Screening Result: No Definite Risk - Problem List Review Problem List Initiated/Reviewed/Updated: Yes - Assessment Assessment (Free Text/Narrative):: POD#1 - left TKA - Plan Plan (Free Text/Narrative):: 1. Hgb 10.6. 2. Discharge to home today if cleared by Hospitalist service and therapies. 3. Outpatient therapy. 4. ASA PO BID, frequent mobility, TEDs. The pt's case was discussed with Dr. Agudelo.
--- NOTE | 2019-07-28 13:34 | PCM.DCSUM1 ---
Discharge Summary - Hospital Course Brief History: Julia is a 49 yo female who underwent left TKA with Dr. Agudelo on 07-25-2019. The procedure was completed under spinal anesthesia with sedation. A post-operative adductor canal block was provided. The pt received Ancef michael-operatively. The pt tolerated the procedure well and was admitted to the [facility] under Medical-Surgical status. Medical management was provided by the Hospitalist service. The pt's Hospital course was uneventful. The pt's Hgb on POD#1 was 10.6. On POD#1, 325mg ASA BID was initiated for VTE prophylaxis. SCDs and TEDs were also ordered. A Mepilex dressing was placed at the incision site at the time of surgery and remained clean and dry. The pt participated in P.T. and O.T. and progressed well. The pt was allowed to WBAT. On POD#1, the pt was deemed appropriate to discharge to home. - Discharge Data Discharge Date: 07/26/19 Discharge Disposition: Home, Self-Care 01 Condition: Good - Referral to Home Health Primary Care Physician: Le Ramirez PA-C - Patient Summary/Data Consults: Consultations 07/25/19 05:55 OT Evaluation and Treatment [CONS] Routine PT Evaluation and Treatment [CONS] Routine 07/25/19 05:56 Consult to Physician [CONS] Routine - Patient Instructions Diet: Usual Diet as Tolerated Activity: Apply Ice, As Tolerated, Elevate Extremity, Full Weight Bearing Driving: Do Not Drive Showering/Bathing: May Shower Wound/Incision Care: Keep Operative Site/Wound Site Clean and Dry, Do NOT Change Dressing Notify Provider of: Fever, Increased Pain, Swelling and Redness, Drainage, Nausea and/or Vomiting Other/Special Instructions: Please get up and moving around EVERY HOUR while awake. This helps to prevent blood clots. Please use your walker and have help with mobility as needed. Take a short walk in your home every hour while awake. Please take 325mg Aspirin TWICE daily. The aspirin is being used for blood clot prevention and not for pain management so please do not miss a dose of the medication. You could use a medication like Pepcid or Tagamet and a medication like Prilosec or Nexium to protect your stomach while you are using the aspirin. At home, please complete the exercises that you learned during the Hospital stay. Schedule for physical therapy. Use the pain medication as needed. The medication may cause drowsiness and constipation. Contact your primary care provider for instructions if you are constipated. You may use a stool softener like docusate sodium or Colace 100mg twice daily and/or a laxative like Miralax daily for constipation. Increase your water and fiber intake while you are using the pain medication. Discontinue use of the pain medication as soon as able. Please do not use other medications that may cause drowsiness (other pain medications, anxiety pills, cold medications, sleeping pills, etc) while using the prescription pain medication. Do not use alcohol while using the pain medication. You may use acetaminophen or Tylenol for pain management, however, please ensure you are not using over 4000 mg or 4 grams of acetaminophen per day from all sources. Your pain medication has 325mg of acetaminophen per tablet. At this time, please do not use ibuprofen (Motrin, Advil) or naproxen (Aleve) for pain management as you are using the aspirin. When the aspirin course is completed in 4 to 6 weeks, you could use ibuprofen or naproxen for pain management (if this is allowed by your primary care provider). Wear the JHONNY hose during the day and you may remove these at night. Elevate the limb to decrease swelling. Place ice to the area often. Place a towel between your skin and the blue pad. Use the incentive spirometer often. Take deep breaths throughout the day. Please keep the dressing in place until follow-up. Notify the Clinic if the dressing becomes saturated. Increase your protein intake while you are healing. If you have diabetes, please closely monitor your blood sugars and notify your primary care provider with abnormal values. Elevated blood sugars increases the risk of infection. Call the Clinic with questions or concerns - [phone]. - Discharge Plan *PRESCRIPTION DRUG MONITORING PROGRAM REVIEWED*: No *COPY OF PRESCRIPTION DRUG MONITORING REPORT IN PATIENT RAMSES: No Prescriptions/Med Rec: Acetaminophen/oxyCODONE [Percocet 325-5 MG] 1 - 2 tab PO Q4H PRN #60 tablet PRN Reason: Pain Aspirin [Ecotrin EC] 325 mg PO BID #60 tab.ec Cyclobenzaprine [Flexeril] 10 mg PO TID PRN #30 tablet PRN Reason: Spasms Home Medications: Home Meds Cholecalciferol (Vitamin D3) [Vitamin D3] 5,000 unit PO DAILY 07/22/19 [History] Citalopram [Citalopram HBr] 20 mg PO DAILY 07/22/19 [History] Desvenlafaxine Succinate [Desvenlafaxine Succinate ER] 50 mg PO DAILY 07/22/19 [ History] Lisinopril [Zestril] 5 mg PO DAILY 07/22/19 [History] Loratadine [Claritin] 10 mg PO DAILY 07/22/19 [History] Multivitamin [Daily Multiple Vitamin] 1 tab PO DAILY 07/22/19 [History] SUMAtriptan Succinate [Imitrex] 100 mg PO ASDIRECTED PRN 07/22/19 [History] Acetaminophen/oxyCODONE [Percocet 325-5 MG] 1 - 2 tab PO Q4H PRN #60 tablet [Rx] Aspirin [Ecotrin EC] 325 mg PO BID #60 tab.ec 07/26/19 [Rx] Cyclobenzaprine [Flexeril] 10 mg PO TID PRN #30 tablet 07/26/19 [Rx] Docusate Sodium [Colace] 100 mg PO BID cap 07/26/19 [Rx] Famotidine [Pepcid] 20 mg PO Q12H tablet 07/26/19 [Rx] Magnesium Hydroxide [Milk of Magnesia] 30 ml PO BID PRN cup 07/26/19 [Rx] Naloxone [Narcan] 0.1 mg IVPUSH Q5M PRN sdv 07/26/19 [Rx] Sennosides [Senna] 8.6 mg PO BID PRN tablet 07/26/19 [Rx] bisacodyL [Dulcolax] 5 mg PO DAILY PRN tablet 07/26/19 [Rx] Patient Handouts: Total Knee Replacement, [id number], Aspirin, ASA oral tablets Referrals: Martina Prescott PA-C [Physician Research Geologist] - - Discharge Summary/Plan Comment DC Time >30 min.: No - Patient Data Vitals - Most Recent: Last Vital Signs Temp 99.5 F 07/26/19 05:15 Pulse 80 07/26/19 05:20 Resp 15 07/25/19 20:00 BP 91/55 L 07/26/19 08:52 Pulse Ox 96 07/26/19 07:41 Weight - Most Recent: 201 lb Med Orders - Current: Current Medications Discontinued Medications Acetaminophen (Tylenol) 975 mg PO ONETIME [facility] Stop: 07/25/19 16:00 Last Admin: 07/25/19 06:18 Dose: 975 mg Aspirin (Ecotrin) 325 mg PO BID [facility] Aspirin (Ecotrin) 325 mg PO BID [facility] Last Admin: 07/26/19 08:53 Dose: 325 mg Bisacodyl (Dulcolax) 5 mg PO DAILY PRN PRN Reason: Constipation Bupivacaine HCl (Sensorcaine-Mpf 0.25%) Confirm Administered Dose 30 ml .ROUTE .STK-MED ONE Stop: 07/25/19 06:25 Last Admin: 07/25/19 08:04 Dose: 30 ml Bupivacaine HCl (Sensorcaine-Mpf 0.75%) Confirm Administered Dose 30 ml .ROUTE .STK-MED ONE Stop: 07/25/19 06:53 Cefazolin Sodium (Ancef) Confirm Administered Dose 2 gm .ROUTE .STK-MED ONE Stop: 07/25/19 06:25 Last Admin: 07/25/19 07:59 Dose: 2 gm Cefazolin Sodium (Ancef) Confirm Administered Dose 2 gm .ROUTE .STK-MED ONE Stop: 07/25/19 06:26 Cholecalciferol (Vitamin D3) 5,000 unit PO DAILY [facility] Last Admin: 07/26/19 08:53 Dose: 5,000 unit Citalopram Hydrobromide (Celexa) 20 mg PO DAILY [facility] Last Admin: 07/26/19 08:53 Dose: 20 mg Morphine Sulfate 8 mg/Epinephrine HCl 0.3 mg/Cefuroxime Sodium 750 mg/Ketorolac Tromethamine 30 mg/Sodium Chloride 27.9 ml 0 mg .XX ONETIME ONE Stop: 07/25/19 07:31 Last Admin: 07/25/19 08:04 Dose: 788.3 mg Cyclobenzaprine HCl (Flexeril) 10 mg PO TID PRN PRN Reason: Spasms Last Admin: 07/26/19 11:57 Dose: 10 mg Docusate Sodium (Colace) 100 mg PO BID [facility] Last Admin: 07/26/19 08:53 Dose: 100 mg Epinephrine HCl (Adrenalin) Confirm Administered Dose 1 mg .ROUTE .STK-MED ONE Stop: 07/25/19 06:51 Famotidine (Pepcid) 20 mg PO Q12H [facility] Last Admin: 07/26/19 06:33 Dose: 20 mg Fentanyl (Sublimaze) Confirm Administered Dose 100 mcg .ROUTE .STK-MED ONE Stop: 07/25/19 06:23 Fentanyl (Sublimaze) 50 mcg IVPUSH Q5M PRN PRN Reason: Pain Stop: 07/25/19 18:00 Hydromorphone HCl (Dilaudid) 0.5 mg IVPUSH Q10M PRN PRN Reason: Pain (severe 7-10) Stop: 07/25/19 18:00 Lactated Ringer's (Ringers, Lactated) 1,000 mls @ 125 mls/hr IV ASDIRECTED [facility] Stop: 07/25/19 23:00 Last Admin: 07/25/19 06:30 Dose: 125 mls/hr Cefazolin Sodium/Dextrose 2 gm (/ Premix) 50 mls @ 100 mls/hr IV Q8H [facility] Stop: 07/26/19 06:59 Last Admin: 07/26/19 06:34 Dose: 100 mls/hr Lactated Ringer's (Ringers, Lactated) Confirm Administered Dose 1,000 mls @ as directed .ROUTE .STK-MED ONE Stop: 07/25/19 08:02 Lactated Ringer's (Ringers, Lactated) Confirm Administered Dose 1,000 mls @ as directed .ROUTE .STK-MED ONE Stop: 07/25/19 08:10 Iodine (Iodine 2% Mild Tincture) Confirm Administered Dose 30 ml .ROUTE .STK- MED ONE Stop: 07/25/19 06:25 Last Admin: 07/25/19 07:56 Dose: 18 ml Ketorolac Tromethamine (Toradol) 15 mg IVPUSH Q6H PRN PRN Reason: Pain Last Admin: 07/26/19 03:52 Dose: 15 mg Ketorolac Tromethamine (Toradol) Confirm Administered Dose 30 mg .ROUTE .STK- MED ONE Stop: 07/25/19 08:12 Ketorolac Tromethamine (Toradol) 15 mg IVPUSH ONETIME ONE Stop: 07/26/19 10:01 Last Admin: 07/26/19 09:52 Dose: 15 mg Lidocaine HCl (Xylocaine-Mpf 1%) Confirm Administered Dose 5 ml .ROUTE .STK-MED ONE Stop: 07/25/19 06:52 Lidocaine/Sodium Bicarbonate (Buffered Lidocaine 1% In Ns 8.4%) 0.25 ml IDERM ONETIME PRN PRN Reason: Prior to IV Start Stop: 07/25/19 18:00 Lisinopril (Prinivil) 5 mg PO DAILY [facility] Last Admin: 07/26/19 08:52 Dose: Not Given Loratadine (Claritin) 10 mg PO DAILY [facility] Last Admin: 07/26/19 09:03 Dose: Not Given Magnesium Hydroxide (Milk Of Magnesia) 30 ml PO BID PRN PRN Reason: Constipation Midazolam HCl (Versed 1 Mg/Ml) Confirm Administered Dose 2 mg .ROUTE .STK-MED ONE Stop: 07/25/19 06:23 Midazolam HCl (Versed 1 Mg/Ml) Confirm Administered Dose 2 mg .ROUTE .STK-MED ONE Stop: 07/25/19 07:56 Morphine Sulfate (Morphine) 2 mg IVPUSH Q2H PRN PRN Reason: Breakthrough Pain Last Admin: 07/26/19 07:39 Dose: 2 mg Multivitamins (Thera) 1 each PO DAILY [facility] Last Admin: 07/26/19 08:49 Dose: 1 each Naloxone HCl (Narcan) 0.1 mg IVPUSH Q5M PRN PRN Reason: Oversedation Ondansetron HCl (Zofran) 4 mg IVPUSH Q6H PRN PRN Reason: Nausea/Vomiting Ondansetron HCl (Zofran) 4 mg IVPUSH ONETIME PRN PRN Reason: Nausea/Vomiting Stop: 07/25/19 18:00 Ondansetron HCl (Zofran) Confirm Administered Dose 4 mg .ROUTE .STK-MED ONE Stop: 07/25/19 08:06 Oxycodone HCl (Oxycontin) 10 mg PO ONETIME [facility] Stop: 07/25/19 16:00 Last Admin: 07/25/19 06:18 Dose: 10 mg Oxycodone/Acetaminophen (Percocet 325-5 Mg) 1 - 2 tab PO Q4H PRN PRN Reason: Pain Last Admin: 07/26/19 10:23 Dose: 2 tab Desvenlafaxine Succinate [ Desvenlafaxine Succinate Er] 50 0 each PO DAILY [facility] Pregabalin (Lyrica) 25 mg PO ONETIME [facility] Stop: 07/25/19 16:00 Last Admin: 07/25/19 06:18 Dose: 50 mg Pregabalin (Lyrica) 50 mg PO ONETIME [facility] Stop: 07/25/19 16:00 Propofol (Diprivan 20 Ml) Confirm Administered Dose 600 mg .ROUTE .STK-MED ONE Stop: 07/25/19 06:23 Propofol (Diprivan 20 Ml) Confirm Administered Dose 200 mg .ROUTE .STK-MED ONE Stop: 07/25/19 07:59 Ropivacaine (Naropin 0.5%) Confirm Administered Dose 30 ml .ROUTE .STK-MED ONE Stop: 07/25/19 06:51 Scopolamine (Transderm-Scop) 1.5 mg TRDERM ONETIME [facility] Stop: 07/25/19 12:00 Last Admin: 07/25/19 06:17 Dose: 1.5 mg Senna (Senna) 8.6 mg PO BID PRN PRN Reason: Constipation Sodium Chloride (Saline Flush) 10 ml FLUSH ASDIRECTED PRN PRN Reason: Keep Vein Open Stop: 07/25/19 18:00 Tranexamic Acid (Cyklokapron) Confirm Administered Dose 1,000 mg .ROUTE .STK- MED ONE Stop: 07/25/19 06:25 Last Admin: 07/25/19 08:12 Dose: 1,000 mg Vancomycin HCl (Vancomycin) Confirm Administered Dose 1 gm .ROUTE .STK-MED ONE Stop: 07/25/19 06:25 Last Admin: 07/25/19 08:07 Dose: 1 gm
--- NOTE | 2019-07-28 16:11 | PCM.OPNOTE ---
- General Post-Op/Procedure Note Date of Surgery/Procedure: 07/25/19 Operative Procedure(s): left total knee arthoplasty Pre Op Diagnosis: left knee osteoarthrosis Post-Op Diagnosis: Same Anesthesia Technique: Local, MAC, Spinal Primary Surgeon: Larry Agudelo Anesthesia Provider: Mike Fang Life Insurance Actuary: Martina Prescott Life Insurance Actuary: Florinda Art EBJoseluis in mLs: 500 Complications: None Condition: Good Free Text/Narrative:: / 9mm 29x9
--- NOTE | 2019-07-28 16:41 | OR ---
DATE OF OPERATION: 07/25/2019 SURGEON: Larry Agudelo MD OPERATION PERFORMED: Left total knee arthroplasty. PREOPERATIVE DIAGNOSIS: Left knee osteoarthrosis. POSTOPERATIVE DIAGNOSIS: Left knee osteoarthrosis. ANESTHESIA: Local MAC with spinal. ANESTHESIA PROVIDER: Mike Fang CRNA. CLEARING TUB WORKER: Martina Prescott PA-C, and Florinda Art LPN. ESTIMATED BLOOD LOSS: 500 mL. COMPLICATIONS: None. CONDITION: Stable. IMPLANTS: 1. Calista size 3 press-fit CR femur. 2. Randolph size 3 press-fit tibial baseplate. 3. Randolph size 3 9 mm CS polyethylene insert. 4. Calista size 29 x 9 mm asymmetric press-fit patella. DESCRIPTION OF PROCEDURE: The patient was identified in the preop holding area. Proper site was marked and identified by the surgeon. The patient was taken back to the operating theater. After adequate anesthesia, the patient's left lower extremity had a nonsterile tourniquet applied and it was sterilely prepped and draped in the usual sterile fashion. OR time-out was performed. The patient received 2 g IV Ancef. At this time, the left lower extremity was exsanguinated. Tourniquet was insufflated to 300 mmHg. Standard medial parapatellar incision was made. Medial parapatellar arthrotomy was created. Deep fibers of the MCL were raised and anterior fat pad was resected. At this time, attention was turned to the patella. Patella measured a 21, it was resected to a 13 for 29 x 9 mm patella. Drill holes were then drilled and found to be in adequate position. The drill was then drilled in the distal femur and the intramedullary distal femoral cutting guide was then placed. 8 mm was resected off the distal femur and was found to be an adequate resection. Sizing guide was placed. It was found to be a size 3 press-fit CR femur that was shown on the implant record at the beginning of this dictation. The drill holes were drilled for the epicondylar axis using Whitesides line and epicondyles as reference. At this time, the 4-in- 1 cutting block was placed. An anterior posterior and anterior and posterior chamfer cuts were then completed. Attention was turned to the tibia. The posterior medial lateral retractors were placed. The extramedullary tibial guide was placed. It was placed in the old footprint of the ACL. It was aligned with the center of the ankle and 0 degrees of slope, 9 mm was then resected off the unaffected side. There was found to be an acceptable reduction. At this time, posterior osteophytes were removed along with medial and lateral meniscus. A trial implant was placed with a correct sized tibia that was mentioned at the beginning of the dictation. A Randolph size 3 9 mm CS polyethylene insert was then placed. The patient's knee was brought through range of motion. The patella was tracking centrally and was stable to varus and valgus stress. Alignment was found to be roughly at 0 degrees. The tibia was stamped and drilled in proper rotation. The universal tibial base plate was impacted in place. Next, the Randolph size 3 press-fit CR femur impacted into place and the Calista size 3 9 mm CS polyethylene insert was placed. The patient's knee was brought into full extension. The patella was then press-fit in place at this time. Tourniquet was deflated. One liter dilute Betadine solution was irrigated through the knee along with 3 L of pulse lavage irrigation with Ancef. Periarticular injection was then completed. The patient's knee was brought through a range of motion. Once the cement had time to set up and it was found to be stable to varus valgus stress, the patella was tracking centrally with full range of motion. At this time, a #2 barbed suture was used for closure of the medial parapatellar arthrotomy. Topical tranexamic acid was placed. 2-0 Vicryl was used subcutaneously, Prineo was used for the skin. The patient tolerated the procedure well and was sent to the PACU in stable condition. MMODAL /[id number]
== END 2019-07-26 13:25 | disposition home or self-care (01) | DRG 302 ==
LOC: JD.OB 06:04 → EDSTATUS 11:00
PROVIDERS: ADMIT Orthopaedic Surgery; ATTEND Orthopaedic Surgery
PROC: 0SRD0JA Replacement of Left Knee Joint with Synthetic Substitute, Uncemented, Open Approach (ICD-10-PCS; principal; 2019-07-25)
DX: M17.12 Unilateral primary osteoarthritis, left knee (principal); F32.9 Major depressive disorder, single episode, unspecified; I10 Essential (primary) hypertension; G43.909 Migraine, unspecified, not intractable, without status migrainosus; G47.33 Obstructive sleep apnea (adult) (pediatric); E55.9 Vitamin D deficiency, unspecified; Z88.0 Allergy status to penicillin; Z88.1 Allergy status to other antibiotic agents; Z91.030 Bee allergy status
CPT/HCPCS: 01402; 36415; 64450; 73560-26-LT; 73560-LT; 80053; 85027; 94660; 94761; 97110-GO; 97110-GP; 97116-GP; 97161-GP; 97165-GO; 97535-GO; A9270-GY; C1776; J0171; J0690; J0697; J1885; J2001; J2250; J2270; J2405; J2704; J2795; J3010; J3370; J3490; J7120

== ENCOUNTER 2020-10-01 07:07 | Day surgery (SDC) | payer BC ==
[~2020-10-01 07:07] MED LIST changes: -Bisacodyl 5 MG Tab PO PRN; -Lactated Ringers 1,000 ML IV SCH; -Magnesium Hydroxide 400 MG/5 ML Susp 30 ML Cup PO PRN; -Morphine 2 MG/ML Syringe IVPUSH PRN; -Naloxone 0.4 MG/ML SDV IVPUSH PRN; -Ondansetron 4 MG/2 ML SDV IVPUSH PRN; -Sennosides 8.6 MG Tab PO PRN
[2020-10-01] MEDS ORDERED: Propofol 200 MG/20 ML SDV ONE (07:11)
[2020-10-01] MEDS ORDERED: Lidocaine 1% 4 ML ONE (07:12)
[2020-10-01] MEDS ORDERED: Midazolam 1 MG/ML 2 ML SDV ONE (07:13)
[2020-10-01] MEDS ORDERED: fentaNYL 100 MCG/2 ML SDV ONE (07:13)
[2020-10-01] MEDS ORDERED: ceFAZolin 1 GM Vial ONE (07:23)
[2020-10-01] MEDS ORDERED: Dexmedetomidine 200 MCG/2 ML SDV ONE (07:44)
[2020-10-01] MEDS ORDERED: Ropivacaine 0.5% 5 MG/ML 30 ML SDV ONE (07:44)
[2020-10-01] MEDS: Lactated Ringers 1,000 ML IV SCH ×2 (07:45→10:30)
--- NOTE | 2020-10-01 08:04 | PCM.PREANE ---
Preanesthetic Assessment - Procedure Proposed Procedure: Right total knee arthroplasty - Anesthesia/Transfusion/Family Hx Anesthesia History: Prior Anesthesia Reaction Type of Anesthesia Reaction: Excessive Nausea/Vomiting Transfusion History: No Prior Transfusion(s) - Review of Systems General: No Symptoms Pulmonary: No Symptoms Cardiovascular: No Symptoms Gastrointestinal: No Symptoms Neurological: No Symptoms Other: Reports: None - Physical Assessment NPO Status Date: 09/30/20 NPO Status Time: 21:00 Vital Signs: Last Vital Signs Temp 97.1 F 10/01/20 07:15 Pulse 76 10/01/20 07:15 Resp 20 10/01/20 07:15 BP 138/102 H 10/01/20 07:15 Pulse Ox 98 10/01/20 07:15 ASA Class: 2 Mental Status: Alert & Oriented x3 Airway Class: Mallampati = 1 Dentition: Reports: Normal Dentition Thyro-Mental Finger Breadths: 3 Mouth Opening Finger Breadths: 3 ROM/Head Extension: Full Lungs: Clear to Auscultation, Normal Respiratory Effort Cardiovascular: Regular Rate, Regular Rhythm - Allergies Allergies/Adverse Reactions: Allergies Allergy/AdvReac Type Severity Reaction Status Date / Time amoxicillin Allergy Rash Verified 09/30/20 13:12 bee venom protein (honey bee) Allergy throat Verified 09/30/20 13:12 swelling ciprofloxacin Allergy Rash Verified 09/30/20 13:12 hydrochlorothiazide Allergy Rash Verified 09/30/20 13:12 Penicillins Allergy Rash Verified 09/30/20 13:12 - Acknowledgements Anesthesia Type Planned: Spinal, Regional Block Pt an Appropriate Candidate for the Planned Anesthesia: Yes Alternatives and Risks of Anesthesia Discussed w Pt/Guardian: Yes Pt/Guardian Understands and Agrees with Anesthesia Plan: Yes PreAnesthesia Questionnaire HEENT History: Reports: Allergic Rhinitis, Impaired Vision Cardiovascular History: Reports: Hypertension Respiratory History: Reports: Sleep Apnea Other Respiratory History: Pt reports "shallow breathing" and use of CPAP at night. Gastrointestinal History: Reports: None Genitourinary History: Reports: None NEWS GATHERING TECHNICIAN History: Reports: None Musculoskeletal History: Reports: Osteoarthritis Other Musculoskeletal History: KNEE PAIN Neurological History: Reports: Migraines Psychiatric History: Reports: Anxiety, Depression Endocrine/Metabolic History: Reports: Vitamin D Deficiency Hematologic History: Reports: None Immunologic History: Reports: None Oncologic (Cancer) History: Reports: None Dermatologic History: Reports: None - Past Surgical History Head Surgeries/Procedures: Reports: None HEENT Surgical History: Reports: Tonsillectomy Cardiovascular Surgical History: Reports: None Respiratory Surgical History: Reports: None GI Surgical History: Reports: None Female Surgical History: Reports: Tubal Ligation Male Surgical History: Reports: None Endocrine Surgical History: Reports: None Neurological Surgical History: Reports: None Musculoskeletal Surgical History: Reports: Carpal Tunnel, Knee Replacement Oncologic Surgical History: Reports: None Dermatological Surgical History: Reports: None - SUBSTANCE USE Tobacco Use Status *Q: Never Tobacco User Recreational Drug Use History: No - HOME MEDS Home Medications: Home Meds Cholecalciferol (Vitamin D3) [Vitamin D3] 5,000 unit PO DAILY 07/22/19 [History] SUMAtriptan succinate [Imitrex] 100 mg PO ASDIRECTED PRN 07/22/19 [History] lisinopriL [Zestril] 20 mg PO QAM 07/22/19 [History] Desvenlafaxine [Desvenlafaxine ER] 100 mg PO DAILY 09/30/20 [History] Metoprolol Succinate [Kapspargo Sprinkle] 25 mg PO DAILY 09/30/20 [History] lisinopriL [Lisinopril] 10 mg PO QPM 09/30/20 [History] Aspirin [Aspirin EC] 325 mg PO BID #84 tab 10/01/20 [Rx] Cyclobenzaprine [Flexeril] 10 mg PO BID PRN #20 tab 10/01/20 [Rx] oxyCODONE 5 - 10 mg PO Q4H PRN #40 tab 10/01/20 [Rx] - CURRENT (IN HOUSE) MEDS Current Meds: Current Medications Acetaminophen (Tylenol) 975 mg PO ONETIME [facility] Stop: 10/01/20 16:00 Last Admin: 10/01/20 07:50 Dose: 975 mg Documented by: Morphine Sulfate 8 mg/Epinephrine HCl 0.3 mg/Cefuroxime Sodium 750 mg/Ketorolac Tromethamine 30 mg/Sodium Chloride 7.9 ml 0 mg .XX ONETIME [facility] Stop: 10/01/20 16:00 Lactated Ringer's (Ringers, Lactated) 1,000 mls @ 125 mls/hr IV ASDIRECTED [facility] Stop: 10/01/20 23:00 Lidocaine/Sodium Bicarbonate (Buffered Lidocaine 1% In Ns 8.4%) 0.25 ml IDERM ONETIME PRN PRN Reason: Prior to IV Start Stop: 10/01/20 18:00 Oxycodone HCl (Oxycontin) 10 mg PO ONETIME [facility] Stop: 10/01/20 16:00 Last Admin: 10/01/20 07:51 Dose: 10 mg Documented by: Pregabalin (Lyrica) 25 mg PO ONETIME [facility] Stop: 10/01/20 16:00 Last Admin: 10/01/20 07:51 Dose: 25 mg Documented by: Scopolamine (Transderm-Scop) 1.5 mg TRDERM ONETIME [facility] Stop: 10/01/20 16:00 Last Admin: 10/01/20 07:50 Dose: 1.5 mg Documented by: Sodium Chloride (Saline Flush) 10 ml FLUSH ASDIRECTED PRN PRN Reason: Keep Vein Open Stop: 10/01/20 18:00 Discontinued Medications Cefazolin Sodium (Ancef) Confirm Administered Dose 2 gm .ROUTE .STK-MED ONE Stop: 10/01/20 07:24 Dexmedetomidine HCl (Precedex) Confirm Administered Dose 200 mcg .ROUTE .STK-MED ONE Stop: 10/01/20 07:45 Fentanyl (Sublimaze) Confirm Administered Dose 100 mcg .ROUTE .STK-MED ONE Stop: 10/01/20 07:14 Lidocaine HCl (Xylocaine-Mpf 1%) Confirm Administered Dose 4 mls @ as directed .ROUTE .STK-MED ONE Stop: 10/01/20 07:13 Midazolam HCl (Versed 1 Mg/Ml) Confirm Administered Dose 2 mg .ROUTE .STK-MED ONE Stop: 10/01/20 07:14 Propofol (Diprivan 20 Ml) Confirm Administered Dose 400 mg .ROUTE .STK-MED ONE Stop: 10/01/20 07:12 Ropivacaine (Naropin 0.5%) Confirm Administered Dose 30 ml .ROUTE .STK-MED ONE Stop: 10/01/20 07:45 Tranexamic Acid (Cyklokapron) Confirm Administered Dose 1,000 mg .ROUTE .STK-MED ONE Stop: 10/01/20 07:26 Vancomycin HCl (Vancomycin) Confirm Administered Dose 1 gm .ROUTE .STK-MED ONE Stop: 10/01/20 07:26
[2020-10-01] MEDS ORDERED: Dexamethasone 4 MG/ML 5 ML MDV ONE (08:13)
[2020-10-01] MEDS ORDERED: EPINEPHrine 1 MG/ML SDV ONE (08:14)
[2020-10-01] MEDS: Vancomycin 1 GM SDV ONE ×2 (09:30→09:36)
[2020-10-01] MEDS: Morphine 8 MG, EPINEPHrine 0.3 MG, Cefuroxime 750 MG, Ketorolac 30 MG, Sodium Chloride ... SCH ×10 (09:30→09:33)
--- NOTE | 2020-10-01 10:16 | PCM.POSTAN ---
POST ANESTHESIA ASSESSMENT - MENTAL STATUS Mental Status: Alert, Oriented - VITAL SIGNS Vital Signs: Last Vital Signs Temp 98.2 F 10/01/20 10:00 Pulse 67 10/01/20 10:00 Resp 16 10/01/20 10:00 BP 93/60 10/01/20 10:00 Pulse Ox 94 L 10/01/20 10:00 - RESPIRATORY Respiratory Status: Respiratory Rate WNL, Airway Patent, O2 Saturation Stable - CARDIOVASCULAR CV Status: Pulse Rate WNL, Low Blood Pressure - GASTROINTESTINAL GI Status: No Symptoms - PAIN Pain Score: 0 (post SAB) - POST OP HYDRATION Hydration Status: Adequate & Stable
--- NOTE | 2020-10-01 10:20 | PCM.PRNOTE ---
- Free Text/Narrative Note: Postoperative regional pain control requested by surgeon. Pre-op Dx: Rt knee osteoarthritis. Post-op Rx: Total Rt knee arthroplasty. Procedure: Rt Adductor canal block with U/S guidance Requesting physician: Dr. Larry Romeo Risks and benefits discussed with the patient preoperatively including infection, bleeding, incomplete or failed block, possible nerve damage, local anesthetic toxicity. Permit signed. Patient after spinal anesthesia post surgery in PACU, stable , alert and awake. Time out performed. Right mid-thigh was prepped with Chloraprep x 1 and allowed to dry. Under aseptic technique, the right femoral artery and sartorius muscle were identified under ultrasound prior to needle insertion. 4" Stimuplex needle #22 G was inserted under US guidance. Under direct visualization of needle tip the injection of 0.5% Ropivacaine with 1:200k epinephrine, with 8 mg of Dexamethasone and 40 mcg of Dexmedetomidine, total of 25 mls in divided doses, maintaining negative aspiration was completed without problems. No local anesthetic toxicity was noted. Patient is awake, stable and tolerated the procedure well. Time: 10:05 - 10:10 Please see attached U/S pictures.
--- NOTE | 2020-10-01 11:09 | CR ---
Right knee: AP and crosstable lateral views of the right knee were obtained. Comparison: Prior knee CT of 09/21/20. Knee prosthesis is noted. Components are aligned. Patellar prosthesis is also noted. Soft tissue air is noted from the surgical procedure. No acute fracture or other abnormality is seen. Impression: 1. Satisfactory postop radiographic appearance of 2 view right knee exam. Diagnostic code #2
[2020-10-01] MEDS ORDERED: Ondansetron 4 MG/2 ML SDV IVPUSH ONE (11:30)
[2020-10-01] MEDS ORDERED: oxyCODONE 5 MG Tab PO PRN (13:23)
--- NOTE | 2020-10-01 13:50 | PCM48HPAN ---
Post Anesthesia Note - EVALUATION WITHIN 48HRS OF ANESTHETIC Vital Signs in Normal Range: Yes Patient Participated in Evaluation: Yes Respiratory Function Stable: Yes Airway Patent: Yes Cardiovascular Function Stable: Yes Hydration Status Stable: Yes Pain Control Satisfactory: Yes Nausea and Vomiting Control Satisfactory: Yes Mental Status Recovered: Yes Vital Signs: Last Vital Signs Temp 99.2 F 10/01/20 12:45 Pulse 73 10/01/20 12:45 Resp 16 10/01/20 12:45 BP 115/73 10/01/20 12:45 Pulse Ox 95 10/01/20 12:45 - COMMENTS/OBSERVATIONS Free Text/Narrative:: Preparing for discharge home
[2020-10-01 14:33] VITALS: BP 128/90; PULSE 71
--- NOTE | 2020-10-10 07:30 | PCM.OPNOTE ---
- General Post-Op/Procedure Note Date of Surgery/Procedure: 10/01/20 Operative Procedure(s): right total knee arthroplasty with [employer] robot[employer] Pre Op Diagnosis: right knee osteoarthrosis Post-Op Diagnosis: Same Anesthesia Technique: Local, MAC, Spinal Primary Surgeon: Larry Agudelo Anesthesia Provider: Heath Aly Cytotechnologist/Histotechnologist: Martina Prescott Cytotechnologist/Histotechnologist: Florinda Art EBL in mLs: 350 Complications: None Condition: Good Free Text/Narrative:: 3 femur 2 tibia 9mm 29x9
--- NOTE | 2020-10-10 08:11 | OR ---
DATE OF OPERATION: 10/01/2020 SURGEON: Larry Agudelo MD OPERATION PERFORMED: Right total knee arthroplasty with [employer] robot[employer]. PREOPERATIVE DIAGNOSIS: Right knee osteoarthrosis. POSTOPERATIVE DIAGNOSIS: Right knee osteoarthrosis. ANESTHESIA: Local MAC with spinal. ANESTHESIA PROVIDER: Luzmaria Haynes. ASSISTANTS: Martina Prescott PA-C, and Florinda Art LPN. ESTIMATED BLOOD LOSS: 350 mL. COMPLICATIONS: None. CONDITION: Stable. IMPLANT: 1. Calista size 3 press-fit CR femur. 2. Calista size 2 press-fit tibial baseplate. 3. Calista size 2, 9 mm CS polyethylene insert. 4. Calista size 29 x 9 mm press-fit asymmetric patella. DESCRIPTION OF PROCEDURE: The patient was identified in the preoperative holding area. Proper site was marked and identified by the surgeon. The patient was taken back to the operating theater, where after adequate anesthesia, the patient's right lower extremity had a nonsterile tourniquet applied. It was then sterilely prepped and draped in the usual sterile fashion. OR time-out was performed. The patient received 2 g IV Ancef. Right lower extremity had the leg waldrop applied and then was exsanguinated. Tourniquet was insufflated to 250 mmHg. Standard anterior incision was made and medial parapatellar arthrotomy was created. Deep fibers of the MCL were raised. Anterior fat pad was resected. Attention was turned to the patella. Patella measured 21 and resected to a 13 for 29 x 9 mm patella. Drill holes were then drilled for the press-fit patella. Attention was turned to the femur and tibia. Checkpoints were placed on both the femur and tibia and then the tibial and femoral arrays were applied with 2 4-0 guide pins and the arrays were placed. Hip center of rotation was obtained. Medial and lateral malleoli were marked using [employer] robotics. 40 points were then obtained off both the femur and the tibia for the [employer] robotic plan. The patient's knee was brought to full extension. Varus-valgus stresses were applied and snapshots were taken for the plan and then at 90 degrees, varus- valgus stresses were applied. The patient at this time had the specific plan for her with 19 mm gaps in both flexion and extension obtained. At this time, the Calista [employer] robot was brought in and anterior, anterior chamfer, posterior, and tibial cuts were completed. The saw blade was then switched and the distal femoral cut as well as the posterior chamfer cut were then completed. All cuts were found to be adequate. All bony fragments were removed. Medial and lateral meniscus were removed at this time as well as any posterior osteophytes. Size 2 trial base plate was placed as well as the size 3 trial femur. 9 mm trial polyethylene was placed. The patient's knee was brought into full extension. She had full extension and full flexion. No patellar maltracking was noted and no varus-valgus instability. Femoral drill holes were drilled. The tibia was stamped and drilled in proper rotation. The size 2 tibia was then impacted into place. A size 3 femur was impacted into place. The 9 mm CS polyethylene insert was impacted into place and the 29 x 9 mm press-fit patella was press-fit into place. Tourniquet was then deflated. Bleeders were cauterized. Checkpoints were removed as well as the arrays and the pins. 400 mL of Irrisept irrigation was irrigated through the knee along with 1 L pulsed lavage irrigation with Ancef. Topical tranexamic acid and vancomycin powder were applied after periarticular injection was completed. #2 barbed suture was used for closure of the medial parapatellar arthrotomy. 2-0 Vicryl as well as Stratafix were used for the subcutaneous closure and Prineo was used for skin closure. The patient had a sterile soft dressing applied and was sent to the PACU in stable condition. DINAH /[id number]
== END 2020-10-01 14:25 | disposition home or self-care (01) ==
LOC: JD.SDS 07:07
PROVIDERS: ATTEND Orthopaedic Surgery
DX: M17.11 Unilateral primary osteoarthritis, right knee (principal); G47.30 Sleep apnea, unspecified; I10 Essential (primary) hypertension; E55.9 Vitamin D deficiency, unspecified; E66.9 Obesity, unspecified; Z68.35 Body mass index [BMI] 35.0-35.9, adult; Z88.1 Allergy status to other antibiotic agents; Z91.030 Bee allergy status; Z88.8 Allergy status to other drugs, medicaments and biological substances; Z79.899 Other long term (current) drug therapy; Z96.652 Presence of left artificial knee joint
CPT/HCPCS: 27447; 73560; 97116; 97161; 97165; A9270; C1713; C1776; J0171; J0690; J0697; J1100; J1885; J2250; J2270; J2405; J2704; J2795; J3010; J3370; J7120; 01402; 64450